=== PATIENT | male | born 1950 | race Hispanic/Latino ===

== ENCOUNTER 2017-09-29 12:16 | Emergency (ER) | payer MEDICARE ==
[2017-09-29 13:15] LABS: #Basophils 0.1 thou/uL (0.0-0.2); #Eosinphils 0.1 thou/uL (0.0-0.7); #Lymphocytes 1.9 thou/uL (1.20-3.40); #Monocytes 0.6 thou/uL (0.11-0.59); #Neutrophils 4.1 thou/uL (1.40-6.50); %Lymphocytes 28.1 % (21.0-51.0); %Neutrophils 59.9 % (42.0-75.0); Hemoglobin 16.5 g/dL (14.0-18.0); Mean Corpuscular HGB CONC 35.7 g/dL (32.0-36.0); Mean Corpuscular Hemoglobin 32.6 pg (27.0-31.0); Mean Corpuscular Volume 91.3 fL (78.0-98.0); Mean Platelet Volume 7.2 fL (7.4-10.4); Platelet Count 196 thou/uL (130-400); RBC Distribution Width 10.5 % (11.5-14.5); Red Blood Cell (RBC) Count 5.07 mill/uL (4.70-6.10); White Blood Cell (WBC) Count 6.9 thou/uL (4.8-10.8)
[2017-09-29 13:27] LABS: Anion Gap 15 mmol/L (10-20); BUN (Urea Nitrogen) 12 mg/dL (8.4-25.7); Calc. Creatinine Clearance 0 mL/min (70-130); Calcium 8.9 mg/dL (7.8-10.44); Carbon Dioxide 23 mmol/L (23-31); Chloride 107 mmol/L (98-107); Estimated GFR-MDRD Greater than 90; Glucose 120 mg/dL (80-115); Potassium 3.9 mmol/L (3.5-5.1); Sodium 141 mmol/L (136-145)
[2017-09-29 13:30] LABS: CKMB 1.4 ng/mL (0-6.6); Troponin I Less than 0.010 ng/mL (< 0.028)
--- NOTE | 2017-09-29 14:19 | CT ---
CT BRAIN: 09/29/2017 PROVIDED CLINICAL HISTORY: Dizziness. Confusion. COMPARISON: 11/05/2006 FINDINGS: The ventricular system appears normal in size and morphology. There is no evidence for intracranial hemorrhage or mass effect. The extracranial soft tissues and osseous structures demonstrate an unrem arkable CT appearance. IMPRESSION: No evidence for intracranial hemorrhage or mass effect. POS: OFF
== END 2017-09-29 14:38 | disposition home or self-care (01) ==
LOC: SCSER 12:16
DX: I49.3 Ventricular premature depolarization (principal); H61.21 Impacted cerumen, right ear; H81.11 Benign paroxysmal vertigo, right ear; R41.82 Altered mental status, unspecified; Z79.899 Other long term (current) drug therapy
CPT/HCPCS: 36415; 70450; 80048; 82553; 83735; 84484; 85025; 93005

== ENCOUNTER 2025-02-04 12:29 | Emergency (ER) | payer MEDICARE ==
[2025-02-04] MEDS ORDERED: Acetaminophen 500 MG TAB ONE (13:53)
== END 2025-02-04 15:20 | disposition home or self-care (01) ==
LOC: ERS 12:29
DX: S92.412A Displaced fracture of proximal phalanx of left great toe, initial encounter for closed fracture (principal); I10 Essential (primary) hypertension; W20.8XXA Other cause of strike by thrown, projected or falling object, initial encounter
CPT/HCPCS: 99283